=== PATIENT | male | born 1955 | race Hispanic/Latino ===

== ENCOUNTER 2024-09-24 17:06 | Emergency (ER) | payer OTHER ==
[~2024-09-24] VITALS: Ht 162.6 cm; Wt 104.3 kg
--- NOTE | 2024-09-24 17:11 | NUR ---
PT TO CT WITH RN.
--- NOTE | 2024-09-24 17:24 | NUR ---
PT BACK FROM CT SCAN WITH RN.
--- NOTE | 2024-09-24 17:30 | HMCIMG ---
CT HEAD WITHOUT CONTRAST INDICATION: Double vision. TECHNIQUE: Noncontrast axial helical CT images from the vertex through the skull base using 5 mm slice thickness without contrast material. CT was performed with one or more of the following dose reduction techniques: Automated exposure control, adjustment of the mA and/or kV according to patient size, or use of iterative reconstruction technique. COMPARISON: None FINDINGS: Generalized mild cervical cortical atrophy. No evidence for abnormal extra-axial fluid collections or masses. The ventricles and sulci are normal in size and configuration. No evidence for intracranial parenchymal, epidural, or subdural hemorrhage, mass effect or midline shift. The retana-white matter differentiation is well preserved. No secondary evidence to suggest acute ischemia. The brainstem and cerebellum appear normal. The visualized orbits appear unremarkable. Nominal bilateral maxillary sinus mucosal thickening. Remainder of the visible paranasal sinuses and mastoid air cells are clear. The calvarium appears normal. IMPRESSION: No acute intracranial process identified.
--- NOTE | 2024-09-24 18:01 | NUR ---
STATES DOUBLE VISION HAS RESOLVED WITHOUT INTERVENTION. DENIES HOME MEDICATION USE.
[2024-09-24 18:04] LABS: BASOPHILS # (AUTO) 0.07 K/uL (0.00-0.20); EOSINOPHILS # (AUTO) 0.06 K/uL (0.00-0.70); EOSINOPHILS % (AUTO) 0.8 % (0.0-8.0); HEMATOCRIT 50.7 % (42-54); IMMATURE GRANULOCYTE ABSOLUTE 0.04 K/uL (0-1); LYMPHOCYTES # (AUTO) 1.5 K/uL (1.0-4.8); MEAN CORPUSCULAR HEMOGLOBIN 32.4 pg (27.0-33.0); MEAN CORPUSCULAR HGB CONC 35.3 g/dL (32.0-36.0); MEAN CORPUSCULAR VOLUME 91.8 fL (79-99); MONOCYTES # (AUTO) 0.5 K/uL (0.1-1.0); NEUTROPHILS # (AUTO) 5.1 K/uL (1.8-7.7); NEUTROPHILS % (AUTO) 70.6 % (40.0-77.0); PLATELET COUNT (AUTO) 141 K/uL (130-400); RED BLOOD CELL COUNT(AUTO) 5.52 MIL/uL (4.50-6.20); RED CELL DISTRIBUTION WIDTH 12.4 % (11.0-15.5); WHITE BLOOD COUNT (AUTO) 7.3 K/uL (4.8-10.8)
--- NOTE | 2024-09-24 18:06 | NUR ---
NIHSS 0
[2024-09-24 18:09] LABS: APPEARANCE,URINE CLEAR (CLEAR); BILIRUBIN,URINE NEGATIVE (NEGATIVE); COLOR,URINE YELLOW (YELLOW); GLUCOSE, URINE (UA) NEGATIVE (NEGATIVE); KETONES,URINE NEGATIVE (NEGATIVE); LEUKOCYTE ESTERASE ,URINE NEGATIVE Leu/uL (NEGATIVE); NITRATE,URINE NEGATIVE (NEGATIVE); OCCULT BLOOD,URINE NEGATIVE (NEGATIVE); PH,URINE 5.5 (5.0-8.0); PROTEIN,URINE NEGATIVE (NEGATIVE); UROBILINOGEN,URINE 0.2 mg/dL (0.2-1.0)
--- NOTE | 2024-09-24 18:12 | ERN ---
ED Note History of Present Illness Stated Complaint: DOUBLE VISION FROM LEFT EYE Chief Complaint: Blurred/Double Vision Time Seen by MD: 17:28 Dictation: This 68-year-old male comes in by private car after experiencing sudden onset of vertical diplopia upon jumping up from a couch to check on a stranger in his backyard. Symptoms began 1 hour prior to arrival and are improving when he arrives in the emergency department. At the time that it started he felt like his right eye was pointing down his left eye was pointing up. If he closes either eye the double vision would go away. At the time of my interview he states that the double vision is essentially gone and he can read normally but has to concentrate a little bit harder than baseline. He had associated heartburn and anxiety but denies chest pain, headache, difficulty with speech or swallowing, weakness, numbness or tingling of the ext remities, nausea or vomiting, or diaphoresis. He does have a history of heavy drinking and drinks a 12 pack a day. He did not drink today. He has also had some life stressors recently and was arrested due to a family disturbance three days ago and drink too much yesterday. He does have a history of high blood pressure and had been on medications but they made him feel bad and he stopped them several years ago. He denies cigarettes. He lives at home with family. He gets panic attacks and has had to go to the hospital for numbness and tingling of the extremities and hypoventilation in the remote past Allergies: Coded Allergies: No Known Allergies (Unverified Allergy, Unknown, 09/24/24) Past Medical History Past Medical History: Hypertension Surgical History: None RN Note Reviewed/Agreed w/PFSH: Yes Review of System Dictation All pertinent systems reviewed, negative except as documented in the HPI The ROS is obtained from patient GENERAL/CONSTITUTIONAL: Negative except as documented in HPI. ENT: Negative except as documented in HPI. CARDIOVASCULAR: Negative except as documented in HPI. RESPIRATORY: Negative except as documented in HPI. GASTROINTESTINAL: Negative except as documented in HPI. GENITOURINARY: Negative except as documented in HPI. MUSCULOSKELETAL: Negative except as documented in HPI. SKIN: Negative except as documented in HPI. NEUROLOGIC: Negative except as documented in HPI. Initial Vital Sign VS Vital Signs Date Time Temp Pulse Resp B/P (MAP) Pulse Ox O2 Delivery O2 Flow Rate FiO2 09/24/24 17:14 98.4 78 16 200/108 100 Room Air 0 09/24/24 17:48 21 Physical Exam Dictation VITAL SIGNS: note is made of triage vital signs CONSTITUTIONAL: This is a comfortable appearing anxious patient who is awake, alert, and appropriately interactive. HEAD: Normocephalic, Atraumatic. EYES: Periorbital areas with no swelling, redness, or edema. Lids and lashes are normal. Conjunctival injection is absent. Sclera anicteric. Pupils equal, round, reactive to light. There was no visual field cut on direct confrontation. Extraocular movements are intact without nystagmus, diplopia ENT: No nasal discharge noted. Posterior pharynx is without exudate, redness, swelling, masses, or evidence of obstruction. Uvula midline. Mucous membranes moist. NECK: Trachea midline, no masses palpated, and no cervical lymphadenopathy. No swelling. Supple, full range of motion without nuchal rigidity. No vertebral point tenderness. No meningismus. CHEST/AXILLA: Normal chest wall appearance and motion. No tenderness. No crepitus. CV: Normal rate, regular rhythm. No murmur. No edema. RESPIRATORY:Respiratory rate is normal. Bilateral equal breath sounds with good airflow. Normal breath sounds are noted. No rales, rhonchi or wheezes noted. No increased work of breathing, no retractions. ABDOMEN: Inspection normal. No distention is appreciated. Bowel sounds are normal. No mass or organomegaly is appreciated. There is no tenderness. No rebou nd. No rigidity. No voluntary or involuntary guarding. BACK: Inspection is normal. No midline tenderness is appreciated. The patient appears comfortable when moving. : No CVA tenderness or bladder tenderness. SKIN: Warm, dry, with normal turgor. Capillary refill less than 3 seconds. Normal color.No rash. No cellulitis or abscess. No evidence of acute injury. MS/Extremity: There is no calf tenderness. Baseline range of motion is noted in all 4 extremities. There are no deformities. NEURO: Awake and alert, lucid. Facies symmetric and speech is clear. Motor strength 5/5 in all extremities. Sensory grossly intact. Rxebpf-qp-wuge is normal and pbpi-wq-chll is normal. There was no pronator drift. PSYCH: Patient is very anxious appropriately attentive and cooperative without evidence of hallucination. Results (Laboratory/Radiology) Laboratory/Radiology Laboratory Tests Test 09/24/24 17:53 White Blood Count 7.3 K/uL (4.8-10.8) Red Blood Count 5.52 MIL/uL (4.50-6.20) Hemoglobin 17.9 g/dL (14.0-18.0) Hematocrit 50.7 % (42-54) Mean Corpuscular Volume 91.8 fL (79-99) Mean Corpuscular Hemoglobin 32.4 pg (27.0-33.0) Mean Corpuscular Hemoglobin Concent 35.3 g/dL (32.0-36.0) Red Cell Distribution Width 12.4 % (11.0-15.5) Platelet Count 141 K/uL (130-400) Mean Platelet Volume 10.7 fL (7.5-10.5) H Immature Granulocyte % (Auto) 0.6 % (0-1) Neutrophils (%) (Auto) 70.6 % (40.0-77.0) Lymphocytes (%) (Auto) 20.0 % (21.0-51.0) L Monocytes (%) (Auto) 7.0 % (3.0-13.0) Eosinophils (%) (Auto) 0.8 % (0.0-8.0) Basophils (%) (Auto) 1.0 % (0.0-5.0) Neutrophils # (Auto) 5.1 K/uL (1.8-7.7) Lymphocytes # (Auto) 1.5 K/uL (1.0-4.8) Monocytes # (Auto) 0.5 K/uL (0.1-1.0) Eosinophils # (Auto) 0.06 K/uL (0.00-0.70) Basophils # (Auto) 0.07 K/uL (0.00-0.20) Absolute Immature Granulocyte (auto 0.04 K/uL (0-1) Nucleated Red Blood Cells 0.0 % (0.0-0.19) Prothrombin Time 10.6 SEC (9.6-11.6) Prothromb Time International Ratio 0.98 (0.85-1.15) Activated Partial Thromboplast Time 25.1 SEC (26.3-35.5) L Urine Color YELLOW (YELLOW) Urine Appearance CLEAR (CLEAR) Urine pH 5.5 (5.0-8.0) Urine Specific [place] 1.020 (1.001-1.031) Urine Protein NEGATIVE mg/dL (NEGATIVE) Urine Glucose (UA) NEGATIVE mg/dL (NEGATIVE) Urine Ketones NEGATIVE mg/dL (NEGATIVE) Urine Occult Blood NEGATIVE (NEGATIVE) Urine Nitrate NEGATIVE (NEGATIVE) Urine Bilirubin NEGATIVE mg/dL (NEGATIVE) Urine Urobilinogen 0.2 mg/dL (0.2-1.0) Urine Leukocyte Esterase NEGATIVE Judi/uL Urine RBC 0-1 /HPF (0-1) Urine WBC 0-1 /HPF (0-1) Urine Squamous Epithelial Cells RARE /HPF (0-2) Urine Bacteria RARE /HPF (None Seen) Sodium Level 138 mmol/L (136-145) Potassium Level 3.9 mmol/L (3.5-5.1) Chloride Level 99 mmol/L (101-111) L Carbon Dioxide Level 32 mmol/L (21-32) Blood Urea Nitrogen 10 mg/dL (7-18) Creatinine 1.1 mg/dL (0.5-1.3) Glomerular Filtration Rate Calc 74 mL/min (>90) Random Glucose 117 mg/dL (70-105) H Total Calcium 9.4 mg/dL (8.5-10.1) Total Creatine Kinase 97 U/L (21-232) Troponin I High Sensitivity 6 ng/L (4-75) B-Type Natriuretic Peptide < 5 pg/mL (0-100) LDL Cholesterol 172 mg/dL (0-99) H EKG Comment: Time reviewed: 1754 EKG number; 1 Rate and rhythm: Normal sinus rhythm at 81 beats per minute [place]:normal Morphology:Normal MD interval: normal QT interval: normal ST/Twaves: normal Impression: normal sinus rhythm without STEMI or ectopy Comparison EKG: none EKG INTERPRETATION by Dr. Vikram Piña X-RAY Comment: Institution : [facility] Accession No. : [id number] Patient : ALICJA PIERRE Creator : Dictator : Glass Silverer : Route Supervisor : BELINDA TRUJILLO Approver2 : Study : CHEST 1VW Study Date : 09/24/2024 18:06:29 Report Date : [place] [id number] [place] [id number] IMAGING REPORT Signed PATIENT: IGNACIO HELM MR#: [id number] : 1955 SEX: M AGE: 68 LOCATION: [facility] ORDER 32 STATUS: [facility] REPORT#: [id number] SERVICE 29 REASON: BLURRED VISION ORDERING PHYSICIAN: VIKRAM PIÑA MD PROCEDURE: CXR1VW - CHEST 1VW PORTABLE CHEST RADIOGRAPH INDICATION: BLURRED VISION COMPARISON: None FINDINGS: residential monitor leads overlie the field of view. Heart size is normal. The pulmonary vascularity and nemesio appear normal. No abnormal pulmonary parenchymal opacity or consolidation identified. Right hemidiaphragm is slightly elevated. No significant pleural effusion noted. No pneumothorax detected. IMPRESSION: No radiographic evidence for any acute cardiopulmonary process. DICTATED BY: BELINDA TRUJILLO MD DATE: 09/24/241821 ELECTRONICALLY SIGNED BY: BELINDA TRUJILLO MD DATE: 09/24/241823 CT Scan Comment: Institution : [facility] Accession No. : [id number] Patient : ALICAJ PIERRE [id number] Creator : Dictator : Glass Silverer : Route Supervisor : BELINDA TRUJILLO Approver2 : Study : CT HEAD/BRAIN W/O CONTRAST Study Date : 09/24/2024 17:18:53 Report Date : [facility] [address] [address] IMAGING REPORT Signed PATIENT: IGNACIO HELM MR#: [id number] : 1955 SEX: M AGE: 68 LOCATION: [facility] ORDER 14 STATUS: REG ER REPORT#: [id number] SERVICE 13 REASON: BLURRED VISION ORDERING PHYSICIAN: VIKRAM PIÑA MD PROCEDURE: HEAD WO - CT HEAD/BRAIN W/O CONTRAST CT HEAD WITHOUT CONTRAST INDICATION: Double vision. TECHNIQUE: Noncontrast axial helical CT images from the vertex through the skull base using 5 mm slice thickness without contrast material. CT was performed with one or more of the following dose reduction techniques: Automated exposure control, adjustment of the mA and/or kV according to patient size, or use of iterative reconstruction technique. COMPARISON: None FINDINGS: Generalized mild cervical cortical atrophy. No evidence for abnormal extra-axial fluid collections or masses. The ventricles and sulci are normal in size and configuration. No evidence for intracranial parenchymal, epidural, or subdural hemorrhage, mass effect or midline shift. The retana-white matter differentiation is well preserved. No secondary evidence to suggest acute ischemia. The brainstem and cerebellum appear normal. The visualized orbits appear unremarkable. Nominal bilateral maxillary sinus mucosal thickening. Remainder of the visible paranasal sinuses and mastoid air cells are clear. The calvarium appears normal. IMPRESSION: No acute intracranial process identified. DICTATED BY: BELINDA TRUJILLO MD DATE: 09/24/241726 ELECTRONICALLY SIGNED BY: BELINDA TRUJILLO MD DATE: 09/24/24 173 ED Course ED Course Orders Procedure Category Date Status Time Ct Head/Brain W/O CT 09/24/24 Resulted Contrast 17:14 Vital Signs Per CPOE 09/24/24 Transmitted Routine 17:30 Cardiac Monitoring CPOE 09/24/24 Transmitted 17:30 Oxygen By Nc/Pulse Ox CPOE 09/24/24 Transmitted 17:30 Saline Lock Iv CPOE 09/24/24 Transmitted 17:30 Nothing By Mouth DIET 09/25/24 Transmitted Breakfast Bedside Swallow Eval ST 09/24/24 Transmitted 17:30 Cbc With Differential LAB 09/24/24 Complete 17:30 Partial LAB 09/24/24 Complete Thromboplastin Time 17:30 Prothrombin Time With LAB 09/24/24 Complete INR 17:30 12 Lead Ekg Tracing- EKG 09/24/24 Complete Technical 17:30 Pulse Ox(Continuous) RT 09/24/24 Transmitted 17:30 Npo W/Aspiration CPOE 09/24/24 Transmitted Precautions 17:30 Complete Nih Stroke CPOE 09/24/24 Transmitted Scale 17:30 Creatine Kinase, Total LAB 09/24/24 Complete 17:30 Troponin I High LAB 09/24/24 Complete Sensitivity 17:30 B-Type Natriuretic LAB 09/24/24 Complete Peptide 17:30 Ldl Direct LAB 09/24/24 Complete 17:30 Urinalysis Profile LAB 09/24/24 Complete 17:30 Chest 1vw RAD 09/24/24 Resulted 17:30 Nihss Every Shift And CPOE 09/24/24 Transmitted PRN 17:30 Neurological Vs Q4hrs MALENA 09/24/24 Transmitted 17:30 Basic Metabolic Panel LAB 09/24/24 Complete 17:30 Nicardipine 25mg Inj PHA 09/24/24 In Process (Cardene 25mg Inj) 18:30 Nicardipine 25mg Inj PHA 09/24/24 Complete (Cardene 25mg Inj) 18:10 Lorazepam 2 Mg PHA 09/24/24 Complete (Ativan) 19:00 Current Medications Medications (Trade) Dose Ordered Sig/Charles Route PRN Reason Start Time Stop Time Status Last Admin Dose Admin Lorazepam (AtiVAN) 1 mg ONCE ONCE IVP 09/24/24 19:00 09/24/24 19:01 DC 09/24/24 18:50 Nicardipine HCl (CarDENE 25MG INJ) 25 mg STK-MED ONCE IV 09/24/24 18:10 09/24/24 18:11 DC Nicardipine HCl 25 mg/Sodium Chloride 250 ml @ 0 mls/hr PROTOCOL IV 09/24/24 18:30 10/24/24 18:29 09/24/24 18:19 Vital Signs Date Time Temp Pulse Resp B/P (MAP) Pulse Ox O2 Delivery O2 Flow Rate FiO2 09/24/24 18:43 87 16 184/79 98 Room Air* 0 21 09/24/24 18:19 82 203/93 09/24/24 18:02 89 18 203/93 99 Room Air* 0 09/24/24 17:48 86 18 191/101 99 Room Air* 0 21 09/24/24 17:14 98.4 78 16 200/108 100 Room Air 0 Medical Decision Making MDM INITIAL IMPRESSION Initial history and physical concerning for transient diplopia, TIA versus hypertensive encephalopathy pat the versus extraocular motor abnormalities Contributing medical problems: Untreated hypertension I have reviewed the triage nursing notes and vital signs. Very elevated blood pressure is present at triage and in the clinical area. Initial plan: The patient had a stroke code activated on arrival. Blood pressure medication with nicardipine was started. He was seen by the tele neurologist, Dr. Trujillo who offered him thrombolytics. The patient declined stating that his vision was getting better. The tele neurologist recommended to me that he get a CT angio however the present time the patient reports he is very anxious and he is declining CT angio DATA REVIEW I have reviewed additional NN, repeat VS, and monitoring where indicated. Blood pressure is improving on nicardipine with the most recent reading 184/79. Ram diagnostic results: CBC and chemistry is normal. Kidney function is normal. Glucose is 117. A BNP and troponin are negative. Initial CT is negative. Other independent historian: none Review of external data: None. The patient will be signed out to the oncoming physician, Dr. Ledesma for final disposition Patient was advised on current findings per CT within normal limits patient refused a CT angio of the brain per outgoing physician, patient's neurological symptoms improved significantly patient was placed on medication for hypertensive emergency. I explained to the patient the plan of care which is to admit patient for further workup make sure that this is a TIA which caused the diplopia we needed to correctly identify any vessel disease. Patient refused admission states he feels better and wants to leave. Despite my education on why we need to keep him patient refused to be admitted family member at bedside aware plan ultimately did not intervene in any way to help admit patient. Patient will be discharged against medical advice since our initial plan was to keep him for stroke workup, teleneurologist plan also was to keep patient for stroke workup. NIH STROKE SCALE: NIH STROKE SCALE Response (Comments) Value Level of Consciousness Alert 0 Ask patient month and their age Answers both correct 0 Command to open eyes, make fist and let go Obeys both correct 0 Best gaze (horizontal eye movement) Normal 0 Visual Field Testing No Visual Field Loss 0 Facial Paresis Normal / Symmetrical 0 Motor Function - Left Arm Normal 0 Motor Function - Right Arm Normal 0 Motor Function - Left Leg Normal 0 Motor Function - Right Leg Normal 0 Limb Ataxia No Ataxia 0 Sensory-pin prick to arms, legs, trunk and face Normal 0 Best Language (describe picture, name items and read) No Aphasia 0 Dysarthria (read several words) Normal Articulation 0 Extinction and Inattention Normal 0 Total DX & DISP Disposition: AMA Departure Impression: Primary Impression: TIA (transient ischemic attack) Additional Impressions: Anxiety, Diplopia Condition: Against Medical Advice Scripts Hydroxyzine Pamoate (Vistaril) 25 Mg Capsule 1 CAP PO BID PRN for anxiety for 7 Days, #14 CAP 0 Refills Prov: ANA LEDESMA MD 09/24/24 Additional Instructions: Despite my effort patient still is reluctant to be admitted and states he wants to go home where he feels more relaxed. I advised him to be did changes mind later on throughout the night or he feels worse to seek immediate help at the nearest ER. Patient agrees. Since patient is neurologically intact aware of person place and time patient will be discharged with an AMA status. Referrals: SELF,REFERRAL (PCP) DU JOSE MD, JULIA I MD Sep 24, 2024 18:12 ANA LEDESMA MD Sep 24, 2024 20:06
[2024-09-24 18:14] LABS: ADD UA MICROSCOPIC YES
[2024-09-24 18:16] LABS: INR 0.98 (0.85-1.15); PROTHROMBIN TIME 10.6 SEC (9.6-11.6)
[2024-09-24 18:17] LABS: PARTIAL THROMBOPLASTIN TIME 25.1 SEC (26.3-35.5)
[2024-09-24] MEDS: niCARDIpine 25MG INJ IV ONE (18:19)
[2024-09-24] MEDS: niCARDIpine 25MG INJ 25 MG in 0.9% NACL 250ML 240 ML IV SCH (18:19)
[2024-09-24 18:21] LABS: CREATININE 1.1 mg/dL (0.5-1.3); POTASSIUM 3.9 mmol/L (3.5-5.1)
[2024-09-24 18:24] LABS: BACTERIA,URINE RARE /HPF (None Seen); MUCUS,URINE RARE LPF (None Seen); RBC,URINE 0-1 /HPF (0-1); SQUAMOUS EPITHELIAL CELL,UR RARE /HPF (0-2); WBC,URINE 0-1 /HPF (0-1)
--- NOTE | 2024-09-24 18:24 | HMCIMG ---
PORTABLE CHEST RADIOGRAPH INDICATION: BLURRED VISION COMPARISON: None FINDINGS: manager monitoring leads overlie the field of view. Heart size is normal. The pulmonary vascularity and nemesio appear normal. No abnormal pulmonary parenchymal opacity or consolidation identified. Right hemidiaphragm is slightly elevated. No significant pleural effusion noted. No pneumothorax detected. IMPRESSION: No radiographic evidence for any acute cardiopulmonary process.
[2024-09-24 18:28] LABS: B-TYPE NATRIURETIC PEPTIDE < 5 pg/mL (0-100)
[2024-09-24] MEDS: LORazepam 2 MG/ML 1 ML VIAL IVP ONE (18:50)
--- NOTE | 2024-09-24 19:07 | NUR ---
TOOK OVER PATIENT AT THIS TIME
--- NOTE | 2024-09-24 19:42 | NUR ---
ED DOCTOR SPOKE WITH PATIENT WITH THE PLAN TO BE ADMITTED INTO THE HOSPITAL, AT THIS TIME PATIENT STATES THAT HIS BLURRED VISION HAS SUBSIDED AND HE WOULD LIKE TO GO HOME. ED DOCTOR ECPLAINED THE IMPORTABNCE OF STAYING IN THE HOSPITAL FOR PROPER CARE. PER PATIENT HE BELIVED THAT HIS BLOOD PRESSURE WILL REGULATE ONCE HE GETS HOME. AT THIS TIME HIS CURRENT VITALS ARE FOLLOWED: 98.2, 20, 98% RA, HR 99, 138/74. PATIENT IS AWAKE ALERT AND ORIETNED WITH SON AT BEDSIDE.
--- NOTE | 2024-09-24 19:51 | EKG ---
[facility] Test Date: 2024-09-24 Test Time: 17:49:29 Pat Name: IGNACIO HELM Department: ED Room: Gender: Clinical Safety Manager: 07 : 1955 Requested By: VIKRAM PIÑA Order Number: [id number] Reading MD: Rachael Duenas Measurements Intervals [place] Rate: 81 P: 18 MS: 193 QRS: 45 QRSD: 81 T: 49 QT: 363 QTc: 421 Interpretive Statements Sinus rhythm No previous ECG available for comparison Electronically Signed On 09-25-2024 11:37:21 LOCKSTITCH SLEEVE SETTER by Rachael Duenas Please click the below link to view image of tracing.
[2024-09-24] MEDS ORDERED: HYDR25CA PO (20:05)
[2024-09-24 20:13] VITALS: BP 129/68; PULSE 101; RESP 16; TEMP 98.6; O2SAT 98
== END 2024-09-24 20:12 | disposition left against medical advice (07) ==
LOC: EDH 17:06
DX: G45.9 Transient cerebral ischemic attack, unspecified (principal); F41.9 Anxiety disorder, unspecified; I10 Essential (primary) hypertension; H53.2 Diplopia
CPT/HCPCS: 99285; 96365; 70450; 71045; 96366; 96375; 82550; 83721; 84484; 80048; 83880; 85025; 85610; 85730; 81001; 36415; 93005; J3490 ×2; J2060; J7050